=== PATIENT | male | born 1995 | race Caucasian/White ===

== ENCOUNTER 2021-11-29 20:08 | Emergency (ER) | payer OTHER ==
[2021-11-29] MEDS ORDERED: SODIUM CHLORIDE 1,000 ML IV STA (20:15)
[2021-11-29 21:06] VITALS: BP 137/69; PULSE 62; TEMP 97.6; BMI 25.6
[2021-11-29 22:12] LABS: ALBUMIN 3.6 g/dl (3.4-5.0); BILIRUBIN,TOTAL 0.5 mg/dl (0.2-1); CALCIUM 8.4 mg/dl (8.5-10); CREATININE 1.2 mg/dl (0.55-1.3); TOT PROT 5.8 g/dl (6.4-8.2)
== END 2021-11-29 23:30 | disposition home or self-care (01) ==
LOC: FER 20:08
PROC: 3E0337Z Introduction of Electrolytic and Water Balance Substance into Peripheral Vein, Percutaneous Approach (ICD-10-PCS; principal; 2021-11-29)
DX: R79.89 Other specified abnormal findings of blood chemistry (principal)
CPT/HCPCS: 36415; 80053; 82550; 82553; 99284-25